=== PATIENT | female | born 1985 | race Asian ===

== ENCOUNTER 2016-12-04 12:46 | Emergency (ER) | payer OTHER ==
[~2016-12-04] VITALS: Ht 160 cm; Wt 59.0 kg
[~2016-12-04 12:46] MED LIST: DEPO-PROVER150 MG/ML IM; FOLI1TAB26 PO; HYDR10TA47 PO; HYDR500C PO; MEDR150I3 IM; MEPERIDINE PO; OXYC10TA3 PO; OXYCODONE30 MG PO; PROM25TA52 PO; XANAX XR3 MG PO; XANAX2 MG PO; XARELTO20 MG OR; XARELTO20 MG PO
[2016-12-04 14:49] LABS: POTASSIUM 4.3 mmol/L (3.6-5.2); SODIUM 133 mmol/L (136-145)
[2016-12-04 15:11] LABS: PLATELET COUNT 176 K/uL (152-353)
[2016-12-04 15:47] VITALS: BP 93/49; TEMP 98.1
[2017-01-26] MEDS ORDERED: OXYCODONE30 MG PO (12:03)
== END 2016-12-04 15:50 | disposition home or self-care (01) ==
LOC: ED 12:46
PROVIDERS: Emergency Medicine
DX: D57.1 Sickle-cell disease without crisis (principal)
CPT/HCPCS: 36415; 80053; 81000; 81025; 85007; 85027; 85044; 96372; 99283; J2550

== ENCOUNTER 2017-06-23 09:33 | Observation (INO) | payer OTHER ==
[~2017-06-23] VITALS: Ht 160 cm; Wt 63.0 kg
[2017-06-23 09:33] VITALS: BP 145/94; TEMP 98.3
[2017-06-23 10:15] VITALS: BP 132/87
[2017-06-23 11:10] LABS: POTASSIUM 3.7 mmol/L (3.6-5.2); SODIUM 140 mmol/L (136-145)
[2017-06-23 11:19] LABS: PLATELET COUNT 532 K/uL (152-353)
[2017-06-23 13:51] VITALS: BP 118/58
[2017-06-23 15:29] VITALS: BP 100/50; TEMP 98.6; Ht 160 cm; Wt 63.0 kg
[2017-06-23 16:00] VITALS: BP 100/50; TEMP 98.6
--- NOTE | 2017-06-23 19:19 | NUR ---
1845 DR ALLEN HERE FRO LINE PLACEMENT CONSULT. PT AGREED FOR CENTRAL LINE PALCMENT. CENTRAL LINE PLACED TO RT GROIN PER STERILE TECHNIQUE PER MD . PT TOLERATED PROCEUDRE WELL. LINE SECURED AND DRESSED PER PROTOCOL.
[2017-06-23 20:09] VITALS: BP 98/54; TEMP 98.4
[2017-06-24] VITALS: BP 99/57; TEMP 98
[2017-06-24 04:00] VITALS: BP 101/63; TEMP 98.1
[2017-06-24 08:00] VITALS: BP 108/63; TEMP 98.3
[2017-06-24 08:09] LABS: PLATELET COUNT 462 K/uL (152-353)
[2017-06-24 08:35] LABS: POTASSIUM 3.5 mmol/L (3.6-5.2); SODIUM 139 mmol/L (136-145)
--- NOTE | 2017-06-24 12:10 | NUR ---
CENTRAL LINE D/C'D PER PROTOCOL. D/C INSTRUCTIONS GIVEN. PRESCRIPTION GIVEN. PT HAS FU WITH DR. ARCHIBALD 07-02-17. PT AMBULATED OUT AT THIS TIME. NO PROBLEMS NOTED.
== END 2017-06-24 12:17 | disposition home or self-care (01) ==
LOC: ED 09:33 → MED/SURG 11:30 → ED 11:30 → MED/SURG 11:30
PROVIDERS: ADMIT Emergency Medicine
PROC: 30233N1 Transfusion of Nonautologous Red Blood Cells into Peripheral Vein, Percutaneous Approach (ICD-10-PCS; principal; 2017-06-23)
PROC: 06HM33Z Insertion of Infusion Device into Right Femoral Vein, Percutaneous Approach (ICD-10-PCS; 2017-06-23)
PROC: 30233N1 Transfusion of Nonautologous Red Blood Cells into Peripheral Vein, Percutaneous Approach (ICD-10-PCS; 2017-06-24)
DX: D57.819 Other sickle-cell disorders with crisis, unspecified (principal)
CPT/HCPCS: 36430; 80048; 80053; 81000; 81025; 83735; 85007; 85027; 85044; 86850; 86900; 86901; 86922; 96365; 96366; 96372; 96375; 99220; 99284; C1768; G0378; J1170; J1200; J1885; J2175; J2550; P9016

== ENCOUNTER 2017-09-28 17:20 | Emergency (ER) | payer OTHER ==
[~2017-09-28] VITALS: Ht 160 cm; Wt 59.0 kg
[2017-09-28 18:28] VITALS: TEMP 98.1
[2017-09-28 18:51] LABS: PLATELET COUNT 439 K/uL (152-353)
[2017-09-28 20:32] VITALS: BP 116/74
== END 2017-09-28 20:39 | disposition home or self-care (01) ==
LOC: ED 17:20
DX: D57.00 Hb-SS disease with crisis, unspecified (principal)
CPT/HCPCS: 36415; 85007; 85027; 99282; J1885

== ENCOUNTER 2017-11-13 22:37 | Observation (INO) | payer OTHER ==
[~2017-11-13] VITALS: Ht 160 cm; Wt 60.0 kg
[2017-11-13 22:45] VITALS: BP 130/79; TEMP 98.4
[2017-11-13 23:28] VITALS: BP 125/80
[2017-11-13 23:45] LABS: PLATELET COUNT 441 K/uL (152-353)
[2017-11-13 23:52] LABS: POTASSIUM 3.3 mmol/L (3.6-5.2)
[2017-11-14] VITALS (9 sets, daily range): BP systolic 90–118; BP diastolic 42–75; TEMP 98.5; Ht 160 cm; Wt 60.0 kg
--- NOTE | 2017-11-14 09:30 | NUR ---
PT ADMITTED TO FLOOR FROM ED. PT LYING IN BED WITH O2 AT 2L NC. PT DROWSY WHEN ASKED QUESTIONS. PT STATES HER PAIN IS AN 8 ALL OVER. PT REQUESTS PAIN MEDICATIONS AND NAUSEA MEDS. RR EQUAL NONLABORED. NO EDEMA NOTED UPON INSPECTION. SR UP X2. BED IN LOWEST POSITION. PT ORIENTED TO ROOM AND CALL LIGHT IN REACH.
--- NOTE | 2017-11-14 10:35 | NUR ---
PT FOUND CRYING AND WHEN ASKED WHATS WRONG PT EXPLAINS FAMILY MEMBER CALLED ABOUT BROTHER BEING ADMITTED TO ANOTHER HOSPITAL. PT BEGINS TO CRY OUT LOUDER AND STATES SHE HAS TO GO SEE BROTHER. NURSE ATTEMPT TO CONSOLE PATIENT. PT LYING IN BED. WITH FLUIDS INFUSING AND NURSE AT BEDSIDE.
--- NOTE | 2017-11-14 10:56 | NUR ---
DR MCCRARY CONTACTED ABOUT PT ANXIETY STATUS. PT WAS GIVEN ATIVAN 2MG IV X1 DOSE NOW FOR ANXIETY. WILL CONTINUE TO MONITOR.
--- NOTE | 2017-11-14 12:08 | NUR ---
PT RESTING IN BED. NAD NOTED. CALL LIGHT IN REACH. RR EQUAL NONLABORED. WILL CONTINUE TO MONITOR.
--- NOTE | 2017-11-14 15:08 | NUR ---
PT ASKED IF RIDE WAS COMING. PT CONTINUES TO VERIFY THAT SHE HAS A RIDE COMING TO GET HER. PT RESTING IN BED. NAD NOTED.
--- NOTE | 2017-11-14 15:53 | NUR ---
PT RIDE ARRIVED. PT DISCHARGED HOME.
== END 2017-11-14 12:00 | disposition home or self-care (01) ==
LOC: ED 22:37 → MED/SURG 11-14 05:44 → ED 11-14 05:44 → MED/SURG 11-14 05:44
PROVIDERS: ADMIT Specialist
DX: D57.819 Other sickle-cell disorders with crisis, unspecified (principal)
CPT/HCPCS: 36415; 80048; 80307; 81000; 85007; 85027; 85044; 96360; 96361; 96365; 96374; 96375; 96376; 99220; 99285; G0378; J1170; J1200; J2060; J2405; J2550

== ENCOUNTER 2017-11-18 22:54 | Emergency (ER) | payer OTHER ==
[~2017-11-18] VITALS: Ht 160 cm; Wt 59.0 kg
[2017-11-19 00:18] LABS: PLATELET COUNT 325 K/uL (152-353)
[2017-11-19 00:21] LABS: POTASSIUM 3.8 mmol/L (3.6-5.2)
[2017-11-19 02:29] VITALS: BP 98/65; TEMP 98.5
== END 2017-11-19 02:35 | disposition home or self-care (01) ==
LOC: ED 22:54
DX: D57.1 Sickle-cell disease without crisis (principal); M79.604 Pain in right leg
CPT/HCPCS: 36415; 80053; 85027; 85044; 96360; 96361; 96365; 96375; 99284; J0132; J1885

== ENCOUNTER 2021-04-17 12:32 | Emergency (ER) | payer OTHER ==
[~2021-04-17] VITALS: Ht 160 cm; Wt 59.0 kg
[2021-04-17 13:05] VITALS: BP 121/89; TEMP 99.1
[2021-04-17 14:11] LABS: POTASSIUM 4.6 mmol/L (3.6-5.2)
[2021-04-17 14:20] LABS: PLATELET COUNT 350 K/uL (152-353)
== END 2021-04-17 16:23 | disposition home or self-care (01) ==
LOC: ED 12:32
PROVIDERS: Hospitalist
DX: R52 Pain, unspecified (principal); D57.1 Sickle-cell disease without crisis; Z20.822 Contact with and (suspected) exposure to COVID-19
CPT/HCPCS: 80053; 85007; 85027; 85044; 87635; 87651; 96360; 96375; 99284; J1885; U0003